=== PATIENT | female | born 1980 | race Caucasian/White ===

== ENCOUNTER 2019-02-12 16:03 | Emergency (ER) | payer SELFPAY ==
[2019-02-12] MEDS ORDERED: DEXAMETHASONE SOD PHOS INJ 10 MG/1 ML VIAL IM ONE (18:30)
[2019-02-12] MEDS ORDERED: HYDROXYZINE HCL 10 MG TABLET PO ONE (18:30)
--- NOTE | 2019-02-12 18:35 | ER Document Report ---
HPI - HPI Time Seen by Provider: 02/12/19 18:20 Pain Level: 1 Context: Patient is a 38-year-old female presents to emergency department with a chief complaint of rash. Patient states that last night she believes she felt a stinging or a discomfort to her right lower extremity. Patient states that initially started out as a small red jaciel but throughout the past 24 hours has gotten slightly larger and has developed blisters. Patient states it hart and itches. Patient states she has uses calamine lotion, cortisone cream and Josephine dish detergent on the site. Patient states it is not helping. Patient denies fever. - REPRODUCTIVE Reproductive: DENIES: : Past Medical History - General Information source: Patient - Social History Smoking Status: Unknown if Ever Smoked Lives with: Family Family History: None - Past Medical History Cardiac Medical History: Reports: None Pulmonary Medical History: Reports: None EENT Medical History: Reports: None Neurological Medical History: Reports: None Endocrine Medical History: Reports: None Renal/ Medical History: Reports: None Malignancy Medical History: Reports: None GI Medical History: Reports: None Musculoskeletal Medical History: Reports None Skin Medical History: Reports None Psychiatric Medical History: Reports: None Traumatic Medical History: Reports: None Infectious Medical History: Reports: None Past Surgical History: Reports: Hx Breast Surgery, Hx Section, Hx Cholecystectomy - Immunizations Hx Diphtheria, Pertussis, Tetanus Vaccination: Yes Vertical Provider Document - CONSTITUTIONAL Agree With Documented VS: Yes Exam Limitations: No Limitations General Appearance: No Apparent Distress - HEENT HEENT: Atraumatic, Normocephalic, PERRLA - RESPIRATORY Respiratory: Breath Sounds Normal, No Respiratory Distress - CARDIOVASCULAR Cardiovascular: Regular Rate, Regular Rhythm - GI/ABDOMEN Gastrointestinal: Abdomen Soft, Abdomen Non-Tender, Normal Bowel Sounds - BACK Back: Normal Inspection - NEURO Level of Consciousness: Awake, Alert, Appropriate - DERM Integumentary: Warm, Rash Adult Front & Back Diagram: 1 - 4 cm linear area of erythema and small blisters, no oozing or drainage, no surrounding cellulitis. Course - Re-evaluation Re-evalutation: 02/12/19 18:48 Due to the patient's report that she felt a sting or bite this is most likely due to an insect sting. I did inform the patient that at this time no antibiotic is needed as it does not appear to have a surrounding cellulitis or look infected. I will give a dose of Decadron while in the emergency department. I did inform the patient can she can continue to use cortisone or calamine lotion. I did inform the patient to stop using down discharge her as this can be an irritant. I did hopi the area so the patient cannot monitor for spread of the rash. - Vital Signs Vital signs: Temp Pulse Resp BP Pulse Ox 98.1 F 92 18 158/66 H 100 02/12/19 16:30 02/12/19 16:30 02/12/19 16:30 02/12/19 16:30 02/12/19 16:30 Discharge - Discharge Clinical Impression: Dermatitis, Rash Condition: Stable Disposition: HOME, SELF-CARE Instructions: Corticosteroid Medication ([facility]) Additional Instructions: Today you were seen in the emergency department for a rash. At this time it does appear to be some sort of insect sting with a localized reaction. At this time you do not need oral antibiotics as there is not an active infection or surrounding cellulitis. Apply cold compresses to the area, rest and elevate. Take antihistamine such as Benadryl. Note that Benadryl can make you sleepy so do not drive while taking this medication. We have given you a dose of Decadron which is a steroid. This will stay in your system for a few days and help with the anti-inflammatory process. Please continue to use the cortisone cream. Do not scratch the area or both the blisters as this can cause an infection. I have circled the rash. Please monitor for increasing redness and swelling outside of the marking. Insect Bites You have been bitten by an insect. These bites can cause two types of swelling: an initial swelling due to insect saliva or injected poison, and a late reaction due to your body's allergic reaction. This initial local reaction may be uncomfortable but is not dangerous. Often there's an itchy "hive" at the bite location. This is treated with antihistamines, cold compresses, and resting the affected body part. The later reaction often develops about the second day. The entire area becomes very swollen, red, itchy, and tender. This is an allergic reaction. Your body is attacking the leftover insect saliva or venom. This type of allergy is unpleasant, but not dangerous. We treat this swelling with cortisone-type medicine. Sometimes we use antibiotics if we're worried about infection. Antihistamines help with the itch. If you develop a fever, chills, a red streak, or swollen glands in the area of the bite, infection may be starting. Return at once. Insect Sting You've been stung by an insect. The venom can cause pain, redness, and swelling. Right after the sting, we sometimes use adrenaline to reduce the reaction to the venom. This also stops any allergic reaction. You should apply cold compresses, rest and elevate the affected part, and take antihistamines. A more severe, itchy red swelling sometimes develops the next day. This is a local allergic reaction to the venom. This local allergy isn't dangerous. We treat it with cortisone-type medicine and antihistamines. Sometimes we use an tibiotics if we're worried about infection. If you develop a fever, chills, a red streak, or swollen glands in the area of the bite, infection may be starting. Return at once. Insect stings from the bee and hornet family may cause a severe allergic reaction. Symptoms include hoarseness, shortness of breath, general redness of the skin, general itching, or lightheadedness. If any of these symptoms occur, you'll be treated with adrenalin and cortisone-like steroids. You should carry a n "Anaphylaxis Kit" with you in the summer months so you can administer these medications to yourself before getting emergency medical care.
[2019-02-12 19:17] VITALS: BP 119/80
== END 2019-02-12 19:17 | disposition home or self-care (01) ==
LOC: ER 16:03
DX: L30.9 Dermatitis, unspecified (principal); R21 Rash and other nonspecific skin eruption; Z90.49 Acquired absence of other specified parts of digestive tract
CPT/HCPCS: 96374; 99282; J1100

== ENCOUNTER 2019-07-05 17:43 | Emergency (ER) | payer SELFPAY ==
[2019-07-05] MEDS ORDERED: CLINDAMYCIN HCL 150 MG CAPSULE PO ONE (19:30)
[2019-07-05] MEDS ORDERED: HYDROCODONE/ACETAMINOPHEN 5-325 MG (6 TAB/ER DISP) PO PRN (19:30)
--- NOTE | 2019-07-05 19:32 | ER Document Report ---
HPI - HPI Patient complains to provider of: Dental pain Time Seen by Provider: 07/05/19 19:29 Onset/Duration: Persistent Quality of pain: Achy Pain Level: 4 Context: Patient presents complaining of dental pain for the past 4 days. Patient with swelling to the left lower jaw. Associated Symptoms: denies: Fever, Nausea, Vomiting Exacerbated by: Denies Relieved by: Denies Similar symptoms previously: Yes Recently seen / treated by doctor: No - ROS ROS below otherwise negative: Yes Systems Reviewed and Negative: Yes All other systems reviewed and negative - CONSTITUTIONAL Constitutional: DENIES: Fever - EENT Notes: Dental pain with lower jaw swelling - RESPIRATORY Respiratory: DENIES: Coughing - GASTROINTESTINAL Gastrointestinal: DENIES: Nausea, Patient vomiting - REPRODUCTIVE Reproductive: DENIES: : - DERM Skin Color: Normal Skin Problems: None Past Medical History - General Information source: Patient - Social History Smoking Status: Current Every Day Smoker Chew tobacco use (# tins/day): No Frequency of alcohol use: None Drug Abuse: None Occupation: None Lives with: Family Family History: None Patient has suicidal ideation: No Patient has homicidal ideation: No - Medical History Medical History: Negative Renal/ Medical History: Denies: Hx Peritoneal Dialysis Past Surgical History: Reports: Hx Breast Surgery, Hx Section, Hx Cholecystectomy - Immunizations Hx Diphtheria, Pertussis, Tetanus Vaccination: Yes Vertical Provider Document - CONSTITUTIONAL Agree With Documented VS: Yes Exam Limitations: No Limitations General Appearance: WD/WN, No Apparent Distress - INFECTION CONTROL TRAVEL OUTSIDE OF THE [place] IN LAST 30 DAYS: No - HEENT HEENT: Atraumatic, Normocephalic. negative: Pharyngeal Exudate, Pharyngeal Tenderness, Pharyngeal Erythema, Tympanic Membrane Red, Tympanic Membrane Bulging Mouth Diagram: 1 - Widespread decay 2 - Tenderness, no trismus, no gingival abscess Notes: Subtle swelling over the left mandibular area - NECK Neck: Normal Inspection, Supple. negative: Lymphadenopathy-Left, Lymphadenopathy-Right - RESPIRATORY Respiratory: Breath Sounds Normal, No Respiratory Distress - CARDIOVASCULAR Cardiovascular: Regular Rate, Regular Rhythm - BACK Back: Normal Inspection - MUSCULOSKELETAL/EXTREMETIES Musculoskeletal/Extremeties: MAEW - NEURO Level of Consciousness: Awake, Alert, Appropriate Motor/Sensory: No Motor Deficit - DERM Integumentary: Warm, Dry, No Rash Course - Re-evaluation Re-evalutation: 07/05/19 Patient with mild swelling to left lower jaw, no drainable abscess, no trismus. Patient otherwise stable for discharge. Encourage outpatient follow-up with dental care provider. - Vital Signs Vital signs: Temp Pulse Resp BP Pulse Ox 97.9 F 89 18 119/88 H 100 07/05/19 18:26 07/05/19 18:26 07/05/19 18:26 07/05/19 18:26 07/05/19 18:26 Discharge - Discharge Clinical Impression: Infected dental caries Condition: Stable Disposition: HOME, SELF-CARE Instructions: Clindamycin ([facility]), Dentist, Dental Infection or Abscess ([facility]), Toothache ([facility]) Additional Instructions: Return immediately for any new or worsening symptoms Followup with your dental care provider, call tomorrow to make a followup appointment Prescriptions: Clindamycin HCl [Cleocin 300 mg Capsule] 300 mg PO TID #21 capsule Naproxen [Naprosyn 250 Nmg Tablet] 1 tab PO BID #14 tablet Referrals: [facility] [Provider Group] - Follow up as needed
[2019-07-05 20:24] VITALS: BP 116/80
== END 2019-07-05 20:24 | disposition home or self-care (01) ==
LOC: ER 17:43
DX: K02.9 Dental caries, unspecified (principal); K04.7 Periapical abscess without sinus; F17.200 Nicotine dependence, unspecified, uncomplicated; Z90.49 Acquired absence of other specified parts of digestive tract
CPT/HCPCS: 99282

== ENCOUNTER 2020-06-24 15:55 | Emergency (ER) | payer SELFPAY ==
--- NOTE | 2020-06-24 18:51 | RADIOLOGY REPORT (SQ) ---
EXAM DESCRIPTION: CHEST SINGLE VIEW IMAGES COMPLETED DATE/TIME: 06/24/2020 3:28 pm REASON FOR STUDY: cough/ covid exposure COMPARISON: None. EXAM PARAMETERS: NUMBER OF VIEWS: One view. TECHNIQUE: Single frontal radiographic view of the chest acquired. RADIATION DOSE: NA LIMITATIONS: None. FINDINGS: LUNGS AND PLEURA: No opacities, masses or pneumothorax. No pleural effusion. MEDIASTINUM AND HILAR STRUCTURES: No masses. Contour normal. HEART AND VASCULAR STRUCTURES: Heart normal in size. Normal vasculature. BONES: No acute findings. HARDWARE: None in the chest. OTHER: No other significant finding. IMPRESSION: NO ACUTE RADIOGRAPHIC FINDING IN THE CHEST. TECHNICAL DOCUMENTATION: JOB ID: [id number] 2010 [employer]- All Rights Reserved Reading location - IP/workstation name: [email or web address]
--- NOTE | 2020-06-24 19:21 | ER Document Report ---
ED General - General Chief Complaint: Fever Stated Complaint: VOMITING,FEVER,COUGH,CONGESTION Time Seen by Provider: 06/24/20 17:48 Mode of Arrival: Ambulatory Information source: Patient Notes: Patient is a 40-year-old female returns emergency room with similar complaints as before. Patient was seen here on 06/05/2020 with vomiting and fever and cough and chills. She was diagnosed with an upper respiratory infection viral in nature and was sent home. Patient also states that she had a coronavirus test at that time and it came back negative. Somewhere around the to 12 June patient's girlfriend was diagnosed positive with the coronavirus and patient has developed the signs and symptoms again. That is now been 11 days since contact and was close contact. And patient is concerned that she now has coronavirus as well. She denies any other medical problems. She denies any nausea or vomiting currently. Patient does smoke. TRAVEL OUTSIDE OF THE [place] IN LAST 30 DAYS: No - HPI Onset: Last week Onset/Duration: Gradual Quality of pain: Cramping Severity: Moderate Pain Level: 3 Associated symptoms: Chills, Nonproductive cough, Fever. denies: Diarrhea, Nausea, Vomiting Exacerbated by: Denies Relieved by: Denies Similar symptoms previously: Yes Recently seen / treated by doctor: Yes - Related Data Allergies/Adverse Reactions: Penicillins Allergy (Verified 06/24/20 17:18) Past Medical History - General Information source: Patient - Social History Smoking Status: Current Every Day Smoker Cigarette use (# per day): Yes - Half pack Chew tobacco use (# tins/day): No Smoking Education Provided: Yes Frequency of alcohol use: None Drug Abuse: None Lives with: Family Family History: None Renal/ Medical History: Denies: Hx Peritoneal Dialysis Past Surgical History: Reports: Hx Breast Surgery, Hx Section, Hx Cholecystectomy - Immunizations Hx Diphtheria, Pertussis, Tetanus Vaccination: Yes Review of Systems - Review of Systems Constitutional: See HPI, Fever EENT: See HPI, Nose congestion, Sinus discharge Cardiovascular: No symptoms reported Respiratory: See HPI, Cough Gastrointestinal: See HPI. denies: Abdomen distended, Abdominal pain, Diarrhea, Nausea, Vomiting Genitourinary: No symptoms reported Female Genitourinary: No symptoms reported Musculoskeletal: No symptoms reported Skin: No symptoms reported Hematologic/Lymphatic: No symptoms reported Neurological/Psychological: No symptoms reported -: Yes All other systems reviewed and negative Physical Exam - Vital signs Vitals: Temp Pulse Resp BP Pulse Ox 98.3 F 88 16 129/60 H 100 06/24/20 16:35 06/24/20 16:35 06/24/20 16:35 06/24/20 16:35 06/24/20 16:35 Interpretation: Normal - Notes Notes: PHYSICAL EXAMINATION: GENERAL: Well-appearing, well-nourished and in no acute distress. However patient is shivering a little. HEAD: Atraumatic, normocephalic. EYES: Pupils equal round and reactive to light, extraocular movements intact, conjunctiva are normal. ENT: Examination head and upper airway show nasal mucosa be mildly erythematous and edematous with some rhinorrhea noted clear in color. No frontal or maxillary sinus tenderness to palpation. Posterior pharynx shows some no erythema no exudates and minimal drainage. Airway is patent. NECK: Normal range of motion, supple without lymphadenopathy LUNGS: Breath sounds clear to auscultation bilaterally and equal. No wheezes rales or rhonchi. HEART: Regular rate and rhythm without murmurs ABDOMEN: Soft, nontender, nondistended abdomen. No guarding, no rebound. No masses appreciated. Female : deferred Musculoskeletal: Normal range of motion, no pitting or edema. No cyanosis. NEUROLOGICAL: Normal speech, normal gait. Normal sensory, motor exams PSYCH: Normal mood, normal affect. SKIN: Warm, Dry, normal turgor, no rashes or lesions noted. Course - Re-evaluation Re-evalutation: 06/24/20 19:20 Patient is present with similar complaints as last time although no vomiting this time no diarrhea. I had a long talk with patient feel we will check her out for a urine to make sure that it is not caused by a urinary tract infection but she is not have any difficulty breathing and and currently has no fever and the last time she took anything for fever was at 10 AM. And she took Motrin. So currently the patient does not look sick with the exception of she has some chills. We will further evaluate after the urine comes back. 06/24/20 20:02 Patient's urine and chest x-ray came back negative. This time we will just discharge her home she will be self quarantine until she can get the results of her coronavirus test. - Vital Signs Vital signs: Temp Pulse Resp BP Pulse Ox 98.3 F 88 16 129/60 H 100 06/24/20 16:35 06/24/20 16:35 06/24/20 16:35 06/24/20 16:35 06/24/20 16:35 - Laboratory Results Critical Laboratory Results Reviewed: No Critical Results - Radiology Results Critical Radiology Results Reviewed: No Critical Results Discharge - Discharge Clinical Impression: Upper respiratory infection, viral Fever Qualifiers: Fever type: unspecified Qualified Code(s): R50.9 - Fever, unspecified Condition: Stable Disposition: HOME, SELF-CARE Instructions: COVID-19 Guidance for Persons Under Investigation, Acetaminophen, Fever ([facility]), Viral Syndrome ([facility]) Additional Instructions: Home and rest. Push fluids as much as possible Tylenol alternate with Motrin every 4 hours to keep fever down. You should receive the results of your coronavirus test in the next 2 to 3 days by email so monitor that closely self quarantine until such time as you know whether is positive or negative. Should you have any concerns or problems you can return to ER for reevaluation. Forms: Smoking Cessation Education Referrals: [facility] [Provider Group] - Follow up as needed
[2020-06-24 19:36] LABS: APPEARANCE,URINE SLIGHTLY-CLOUDY; BILIRUBIN,URINE NEGATIVE (NEGATIVE); COLOR,URINE YELLOW; GLUCOSE, URINE NEGATIVE (NEGATIVE); KETONES,URINE NEGATIVE (NEGATIVE); LEUKOCYTE ESTERASE,URINE NEGATIVE (NEGATIVE); NITRITE,URINE NEGATIVE (NEGATIVE); PROTEIN,URINE NEGATIVE (NEGATIVE); URINE SPECIFIC GRAVITY 1.014; UROBILINOGEN,URINE NEGATIVE mg/dL (<2.0)
[2020-06-24 20:42] VITALS: BP 130/47
== END 2020-06-24 20:46 | disposition home or self-care (01) ==
LOC: ER 15:55
DX: U07.1 COVID-19 (principal); J06.9 Acute upper respiratory infection, unspecified; R50.9 Fever, unspecified; F17.210 Nicotine dependence, cigarettes, uncomplicated; Z88.0 Allergy status to penicillin
CPT/HCPCS: 99284; 87070; 87086; 87880; 87635; 81025; 87088; 81001; 71045; C9803